=== PATIENT | male | born 1995 | race Caucasian/White ===

== ENCOUNTER 2022-01-21 10:06 | Inpatient (IN) ==
--- NOTE | 2022-01-09 11:45 | Anesthesiology Consultation ---
Date of Service January 09, 2022 Assessment & Plan (1) Encounter for pre-operative examination: - COVID screening: Per drain layer on 01/09/2022: Travel screen negative, no known COVID-19 positive contacts or current COVID-19 related symptoms in past 2 weeks. [facility] at [facility], will need preop COVID testing 2-4 days prior to surgery. Chart Review Chart Review: Acceptable Risk for Surgery and Patient NOT seen in Pre Admission Testing History Surgery Operation Date: 01/21/22 09:20 Proposed Procedures p Left Ulna Hardware Removal - Austin Lobo MD Height/Weight Weight: 78.018 kg Allergies Allergy/AdvReac Type Severity Reaction Status Date / Time sulfamethoxazole Allergy Unknown Verified 01/09/22 10:47 [From Bactrim] trimethoprim [From Bactrim] Allergy Unknown Verified 01/09/22 10:47 Medications Home Medications Medication Instructions Recorded Confirmed Last Taken No Known Home Medications 01/09/22 01/09/22 Unknown Past Medical History Medical History (Updated 01/09/22 @ 11:44 by Theodora Chavez PA-C) Hx of osteoarthritis unknown where-information from [facility] chart Past Family History Family History Other No significant family history Past Surgical History Surgical History (Updated 01/09/22 @ 11:44 by Theodora Chavez PA-C) History of surgery on arm unknown-information from [facility] chart Hx of appendectomy 04/17/18: Grade 1 view, MAC 3, ETT 7.5. Social History Smoking Status: Unknown if ever smoked Smoking cigarettes per day: UNKNOWN
[~2022-01-21 10:06] MED LIST: LACTATED RINGER'S 1,000 ML IV SCH; LR 15ML/HR IV SCH; ROPIVACAINE 0.5% 5 MG/ML 30 ML VIAL ONE; ceFAZolin 2000MG 2,000 MG/15 ML SYR IV SCH
[2022-01-21] MEDS ORDERED: ONDANSETRON INJ 2 MG/ML 2 ML VIAL IV PRN (13:00)
[2022-01-21] MEDS ORDERED: ATROPINE SULFATE 0.1 MG/ML 10ML SYR IV PRN (13:00)
[2022-01-21] MEDS ORDERED: PROMETHAZINE HCL 12.5 MG in SODIUM CHLORIDE 0.9% 50 ML IV PRN (13:00)
[2022-01-21] MEDS ORDERED: FLUMAZENIL 0.1 MG/1 ML 10 ML VIAL IV PRN (13:00)
[2022-01-21] MEDS ORDERED: HYDROmorphone INJ 1 MG/ML SYRINGE IV PRN ×2 (13:00→18:02)
[2022-01-21] MEDS ORDERED: NALOXONE HCL 0.4 MG/1 ML VIAL/CARP IV PRN ×2 (13:00→18:02)
[2022-01-21] MEDS ORDERED: fentaNYL citrate 100 MCG/2 ML VIAL IV PRN (13:00)
[2022-01-21] MEDS ORDERED: ePHEDrine sulfate 50 MG/ML AMP IV PRN (13:00)
[2022-01-21] MEDS ORDERED: fentaNYL citrate 100 MCG/2 ML VIAL ONE ×2 (13:29→16:45)
[2022-01-21] MEDS ORDERED: MIDAZOLAM HCL 1 MG/ML 2ML VIAL ONE ×2 (13:29→14:25)
[2022-01-21] MEDS ORDERED: LIDOCAINE 2% 20 MG/ML 5 ML SYR IV ONE (13:29)
[2022-01-21] MEDS ORDERED: PROPOFOL IV EMULSION 10 MG/ML 20 ML VIAL IV ONE (13:29)
--- NOTE | 2022-01-21 14:41 | History & Physical Bridge Note ---
Date of Service January 21, 2022 History & Physical Bridge Note I have examined the patient, reviewed the History & Physical and in the interval since the performance of the History & Physical I have noted the following changes of clinical significance: no changes noted
[2022-01-21] MEDS ORDERED: GENTAMICIN SULFATE 40 MG/ML 2 ML VIAL ONE (14:55)
[2022-01-21] MEDS ORDERED: VANCOMYCIN HCL 1000MG/20ML VIAL ONE (14:55)
[2022-01-21] MEDS ORDERED: DEXAMETHASONE SOD INJ 4 MG/ML VIAL ONE (15:23)
[2022-01-21] MEDS ORDERED: ONDANSETRON INJ 2 MG/ML 2 ML VIAL ONE (15:23)
[2022-01-21] MEDS ORDERED: ePHEDrine sulfate 50 MG/ML AMP ONE (15:41)
--- NOTE | 2022-01-21 16:57 | Operative Report ---
Post Operative Report Pre & Post Diagnosis Operation Date: 01/21/22 12:50 Pre-Op Diagnosis: Osteomyelitis, left ulna Post-Op Diagnosis: Osteomyelitis, left ulna I identified the patient and participated in the time-out.: Yes Procedure Operation Date: 01/21/22 12:50 Actual Procedures p Left Ulna Hardware Removal(Left) - Austin Lobo MD Surgeon Austin Lobo M.D. Stock Chaser Alma Farfan PA-C Estimated Blood Loss 10 Findings Consistent with Post-Op Diagnosis Specimens wound cultures, soft tissue for culture, culture of affected screw hole Anesthesia Type General Regional Description of Procedure Patient was taken to the operating room, placed under general anesthesia. Time out performed, prepped and draped in routine sterile fashion. He was given 2gm IV Ancef for surgical prophylaxis. I was present during the entire case, please see Dr. Lobo's operative report for further details regarding the procedure. I assisted with positioning, removal of hardware, debridement, irrigation, stimulan beads and closure, splinting and dressings. Patient was awakened and taken to the recovery room in stable condition. I attest to the content of the Intraoperative Record and any orders documented therein. Any exceptions are noted below.
--- NOTE | 2022-01-21 17:08 | Fluoroscopy Report ---
FL forearm LT 2V HISTORY: 26 years-old Male LT UNLAR REMOVE HARDWARE status post hardware removal COMPARISON: CT left forearm 09/10/2021 TECHNIQUE: 4 spot fluoroscopic images of the left forearm were obtained utilizing 4.8 seconds fluoros copy time FINDINGS: Interval removal of the ulnar ORIF hardware. The radial ORIF hardware persists. Expected postoperativ e soft tissue swelling with deep tissue air. No acute fracture or unexpected opaque foreign body. Cor tical thickening compatible with chronic fracture deformities of the radius and ulna. IMPRESSION: Fluoroscopic assistance as above. ACT 112: Negative or not required by law. The above report was generated using voice recognition software. It may contain grammatical, syntax o r spelling errors. Electronically signed by: Nilesh Topete M.D. 01/21/2022 5:07 PM
--- NOTE | 2022-01-21 17:13 | Operative Report ---
Post Operative Report Pre & Post Diagnosis Operation Date: 01/21/22 12:50 Pre-Op Diagnosis: Osteomyelitis, left ulna Post-Op Diagnosis: Osteomyelitis, left ulna I identified the patient and participated in the time-out.: Yes Procedure Pre and postop diagnosis is left ulna osteomyelitis status post ORIF. Operation Date: 01/21/22 12:50 Actual Procedures p Left Ulna Hardware Removal(Left) - Austin Lobo MD Surgeon Austin Lobo MD Printing Gray Cloth Tender Alma Farfan PA-C, No resident or fellow available Estimated Blood Loss 10 Findings Consistent with Post-Op Diagnosis Specimens Cultures x3 #1 superficial #2 of the screw second screw hole from distal #3 he was granulation tissue from the second screw from distal Anesthesia Type General Regional Complications none Disposition Accompanied Patient To Recovery: No Disposition: Recovery Room Indications Hector had a substantial trauma to his left arm was several years ago. This was treated with ORIF among other things of both bones. He had bumped his arm about a year ago and one of the prominent screws broke through the skin. This subsequently got infected and he is suspected to have a focal osteomyelitis of one of the distal screws of the ulnar plate. He is incarcerated. The inflammatory work-up was negative. Recommended removal of the hardware debridement and IV antibiotics. He has a draining sinus. He is agreed to proceed. Description of Procedure Informed consent obtained. Patient identified. He identified the operative site as the left forearm. I marked with my initials and marked out the prior surgical incision that the plate had been inserted through. He was taken to the operating room positioned supine on the operating room table. The anesthetic was administered. A tourniquet was applied to the left upper arm. The limb was prescribed a Betadine and prepped with Betadine in the usual sterile fashion. DVT prophylaxis with early mobility. There was a prominent screw distally over the dorsal ulna with a draining sinus. Swelling localized to that area. Deformity of the arm due to chronic trauma and muscle wasting from neurological injury. Timeout performed. Preop antibiotics given. Positioned supine with the left arm on a hand table. At the conclusion the procedure AP and lateral fluoroscopic images were obtained to document the hardware removal from the ulna. The limb was exsanguinated with the Esmarch although very little pressure was utilized over the wound on the distal ulna. Tourniquet inflated 225 mmHg. The prior surgical incision was utilized to incise the skin. I bluntly dissected down to the level of the ulna and then used electrocautery to expose the ulna. Bone had overgrown proximally and distally and this was removed with a rongeur and osteotome. The screw holes were cleaned of bone and then they were sequentially removed. After removing it off of the overlying bone from the plate proximally distally it was then easily removed. All the screws were good except for the second screw from distal which was grossly loose. There was granulation tissue really only noted around this area and on the superficial part of the distal screw. I then went ahead and curetted the entire plate bed. I rongeured off any bony spicules and bony prominences. I then took a 2.5 mm drill bit and under hand power hand reamed the screws from distal to proximal doing the infected screw hole last. I then took a 3.5 then 4.5 and then 4.8 mm drill bit and underhand power debrided the second screw from distal as it was a grossly dilated. I dissected dorsally to identify that area and remove any granulation tissue I used a curette in the hole and removed any unhealthy bone and tissue present on both sides of the bone. I excised the skin of the sinus tract. At the start of the procedure a culture was taken of the sinus. I took another culture of the screw hole once the screw had been removed and then I sent the debrided granulation tissue from the screw hole as a tissue culture. Routine gram stain aerobic and anaerobic cultures. The remainder of the plate looked normal there was no granulation tissue present elsewhere. There was no fluid collection or purulence noted. After having adequately debrided the second screw from distal all the screw holes were filled as best as possible with 1 more pieces of stimulant beads containing vancomycin and gentamicin. Prior to this the tourniquet was let down. Vein required stick tie pursestring partial repair to stop bleeding and there was a small arterial branch distally which was cauterized. Irrigation was performed with at least 1 L of sterile saline prior to wound closure and prior to putting in the stimulant beads. Hemostasis was well controlled and then the skin was closed with simple interrupted and near far far near sutures using 3-0 nylon. The arm was cleaned and dry sponges a soft sterile dressing was applied Xeroform 4 x 4's ABD soft wrap and then a v olar splint with an Noe. Patient will be admitted to the hospital for IV antibiotics and ID consultation. We will follow-up on the cultures. The plate and the cultures were submitted the specimens. Counts were correct blood loss is estimated to be 20 cc. At the conclusion of the operation there was no one available to speak to. No complications. The type of plate was not clear. It appeared to be some variant of a LCDCP plate with hexhead a 3.5 millimeter screws. I attest to the content of the Intraoperative Record and any orders documented therein. Any exceptions are noted below.
--- NOTE | 2022-01-21 17:23 | Anesthesiology Progress Note ---
Date of Service January 21, 2022 Anesthesia Post Procedure Vital Signs Vital Signs: Temp Pulse Pulse Resp BP Pulse Ox O2 Del Method 01/21/22 17:15 36.2 C L 78 16 127/63 100 Oxymask 01/21/22 17:05 73 16 138/80 100 Oxymask 01/21/22 16:55 63 10 L 125/65 100 Oxymask 01/21/22 16:49 36.0 C L 102 H 12 131/78 100 Oxymask 01/21/22 10:29 36.4 C L 119 H 20 119/76 98 Room Air O2 Flow Rate 01/21/22 17:15 3 01/21/22 17:05 3 01/21/22 16:55 3 01/21/22 16:49 3 01/21/22 10:29 Transfer of Care Handoff Completed per policy Notes Mental Status: alert / awake / arousable Patient Amnestic to Procedure: Yes Nausea / Vomiting: adequately controlled Pain: adequately controlled Airway Patency, RR, SpO2: stable & adequate BP & HR: stable & adequate Hydration State: stable & adequate Anesthetic Complications: no major complications apparent
[2022-01-21] MEDS ORDERED: TAMSULOSIN HCL 0.4 MG CAP PO PRN (18:02)
[2022-01-21] MEDS ORDERED: bisacodyL 10 MG SUPP PR PRN (18:02)
[2022-01-21] MEDS ORDERED: traMADol HCL 50 MG TABLET PO PRN (18:02)
[2022-01-21] MEDS ORDERED: HYDROmorphone INJ 0.5 MG/0.5 ML SYR IV PRN (18:02)
[2022-01-21] MEDS ORDERED: METOCLOPRAMIDE HCL INJ 5 MG/ML 2 ML VIAL IV PRN (18:02)
[2022-01-21] MEDS ORDERED: VANCOMYCIN CONSULT ACTIVE PRN (18:02)
[2022-01-21] MEDS ORDERED: MAGNESIUM HYDROXIDE SUSP 30 ML UDC PO PRN (18:02)
[2022-01-21] MEDS ORDERED: VANCOMYCIN HCL 1,750 MG in SODIUM CHLORIDE 0.9% 500 ML IV STA (19:50)
[2022-01-21] MEDS: SODIUM CHLORIDE 0.9% 1000ML 1,000 ML IV SCH (20:26)
[2022-01-21] MEDS: KETOROLAC 30 MG/ML VIAL IV SCH (20:27)
[2022-01-21] MEDS: CEFEPIME 2,000 MG in SYRINGE 0 ML IV SCH (20:27)
[2022-01-21 20:28] LABS: Creatinine Clr Calc Pharmacy 133.2 ml/min; Est GFR (African American) 138.1 ml/min; Est GFR (Non-African American) 119.1 ml/min
[2022-01-21] MEDS: ACETAMINOPHEN 500 MG TAB PO SCH (20:32)
[2022-01-21] MEDS: SENNA 8.6 MG TAB PO SCH (20:33)
[2022-01-21] MEDS: DOCUSATE SODIUM 100 MG CAP PO SCH (20:34)
[2022-01-21] MEDS: ONDANSETRON INJ 2 MG/ML 2 ML VIAL IV PRN (21:46)
[2022-01-22] MEDS: KETOROLAC 30 MG/ML VIAL IV SCH ×4 (00:20→17:44)
[2022-01-22] MEDS: CEFEPIME 2,000 MG in SYRINGE 0 ML IV SCH ×3 (02:23→17:44)
[2022-01-22] MEDS ORDERED: VANCOMYCIN HCL 1,000 MG in SODIUM CHLORIDE 0.9% 250 ML IV SCH (02:45)
[2022-01-22] MEDS: ONDANSETRON INJ 2 MG/ML 2 ML VIAL IV PRN (03:43)
[2022-01-22] MEDS: oxyCODONE HCL IR 5 MG TAB (IMMEDIATE RELEASE) PO PRN ×2 (03:43→06:54)
[2022-01-22] MEDS: ACETAMINOPHEN 500 MG TAB PO SCH ×3 (05:51→21:46)
[2022-01-22] MEDS: diphenhydrAMINE 50 MG/ML VIAL IV PRN ×2 (05:58→23:07)
[2022-01-22 06:33] LABS: Hematocrit (blood only) 36.9 % (40.1-51.0); Hemoglobin 12.8 g/dl (14.0-18.0); Mean Corpuscular Hemoglobin 29.4 pg (25.0-34.0); Mean Corpuscular Hgb Conc 34.7 g/dL (32.0-36.0); Mean Corpuscular Volume 84.8 fL (80.0-100.0); Mean Platelet Volume 9.5 fL (9.4-12.4); Platelet Count 241 K/uL (130-400); RDW Coefficient of Variation 12.1 % (11.5-14.5); RDW Standard Deviation 37.6 fL (36.4-46.3); Red Blood Count 4.35 M/uL (4.63-6.08); White Blood Count 9.49 K/ul (4.8-10.8)
[2022-01-22] MEDS: SODIUM CHLORIDE 0.9% 1000ML 1,000 ML IV SCH (07:10)
[2022-01-22 07:39] LABS: BUN Creatinine Ratio 15.5 (10-20); Calcium 8.8 mg/dl (8.5-10.1); Est GFR (African American) 140.1 ml/min; Est GFR (Non-African American) 120.8 ml/min
[2022-01-22] MEDS: MULTIVITAMIN TAB PO SCH (08:22)
[2022-01-22] MEDS: DOCUSATE SODIUM 100 MG CAP PO SCH ×2 (08:22→21:46)
--- NOTE | 2022-01-22 09:49 | Orthopedic Progress Note ---
Date of Service January 22, 2022 Assessment & Plan (1) Osteomyelitis of left ulna: Present on Admission?: Yes Plan Cultures are pending. Continue broad-spectrum antibiotics. There is a small risk for fracture. Protect with a splint and eventually a cast. Follow-up on cultures. Await ID recommendations. Check blood cultures. He will likely need long-term IV antibiotics. Admission and Anticipated Discharge Date Admission Date: January 21, 2022 Subjective Doing well. Pain is well controlled. Block is still wearing off. Results of surgery and findings as well as x-rays are discussed and reviewed. Physical Exam Physical Exam: Dressing clean and dry. He can wiggle his fingers but has deficits of ulnar and radial nerve. Cannot extend the thumb has difficulty extending fingers as well as abducting. These are chronic findings. Palmar abduction of the thumb appears to be intact as well as finger flexion capillary refill. There is still some tingling and numbness present. Swelling is absent Results & Data ([facility]) Vital Signs (Past 12 Hours) Vital Signs Temp Pulse Resp BP Pulse Ox O2 Del Method 01/22/22 08:24 36.7 C 68 16 96/59 L 100 Room Air 01/22/22 02:55 36.5 C 74 14 144/83 H 97 Room Air 01/21/22 23:00 Room Air
[2022-01-22] MEDS: VANCOMYCIN HCL 1,500 MG in SODIUM CHLORIDE 0.9% 500 ML IV SCH ×2 (11:55→23:07)
--- NOTE | 2022-01-22 12:05 | Pharmacy Report ---
Pharmacy PK ABX Note - Date of Service January 22, 2022 - Assessment and Plan Assessment 26 year old M receiving Vancomycin for treatment of osteomyelitis (left arm). Additionally receiving cefepime 2 grams q8h. Currently awaiting infectious disease recommendations. Day # 2 of antimicrobial therapy. Plan Vancomycin * Loading dose: 1,750 mg IV x 1 on 01/21/22 at 20:34 * Maintenance dose: 1,500 mg IV every 12 hours starting 01/22/22 at 11:15 * Regimen is predicted to achieve target AUC/RONALDO of 400-600 mg/L.hr * Random level ordered for 01/23/22 with AM labs. Pharmacy will continue to follow and will adjust dose/frequency as necessary. Thank you. Pharmacy has transitioned to AUC monitoring for vancomycin. AUC/RONALDO is the preferred PK/PD target and is associated with decreased risk of nephrotoxicity compared to traditional trough targets.
[2022-01-22] MEDS: SENNA 8.6 MG TAB PO SCH (21:46)
[2022-01-23] MEDS: KETOROLAC 30 MG/ML VIAL IV SCH ×3 (01:33→13:42)
[2022-01-23] MEDS: CEFEPIME 2,000 MG in SYRINGE 0 ML IV SCH ×2 (01:34→08:37)
[2022-01-23] MEDS: ACETAMINOPHEN 500 MG TAB PO SCH ×3 (06:11→22:10)
[2022-01-23] MEDS: MULTIVITAMIN TAB PO SCH (08:37)
[2022-01-23] MEDS: DOCUSATE SODIUM 100 MG CAP PO SCH ×2 (08:37→20:22)
--- NOTE | 2022-01-23 08:54 | Pharmacy Report ---
Pharmacy PK ABX Note - Date of Service January 23, 2022 - Assessment and Plan Assessment 26 year old M receiving Vancomycin for treatment of osteomyelitis (left arm). Additionally receiving cefepime 2 grams q8h. Currently awaiting infectious disease recommendations. One arm culture is growing MSSA. Day # 3 of antimicrobial therapy. Plan Vancomycin * Trough this morning associated with an AUC of 481 mg/L.hr but only 83% probability. * Increase dose to vancomycin 1250 mg IV q8 hours which is associated with AUC of 600 mg/L.hr with 98% probability. Risk of nephrotoxicity is 15%. * Regimen is predicted to achieve target AUC/RONALDO of 400-600 mg/L.hr * Random level ordered for 01/23/22 with AM labs. Pharmacy will continue to follow and will adjust dose/frequency as necessary. Thank you. Pharmacy has transitioned to AUC monitoring for vancomycin. AUC/RONALDO is the preferred PK/PD target and is associated with decreased risk of nephrotoxicity compared to traditional trough targets.
--- NOTE | 2022-01-23 09:40 | Orthopedic Progress Note ---
Date of Service January 23, 2022 Assessment & Plan (1) Osteomyelitis of left ulna: Plan: Patient was educated regarding today's findings. Xeroform was left in place over the wound. New gauze and Kerlix were applied to the forearm. Splint was replaced and covered with Noe wraps. Continue previous restrictions. Patient remains afebrile. Continues vancomycin. He will be seen by Dr. Lobo later today. Awaiting further input from infectious disease. Patient's blood cultures remain negative at this time. Admission and Anticipated Discharge Date Admission Date: January 21, 2022 Subjective Patient was seen in his room this morning. He currently has no complaints. Denies any significant pain in his. No numbness or tingling. He is waiting to see what the neck steps are. Patient denies any fevers or chills. No sweats overnight. Review of Systems Review of Systems: Unchanged from yesterday. Physical Exam Physical Exam: General: Well-developed, well-nourished, young male, in no acute distress. Laying in bed. Alert and oriented. Conversive. Skin: Warm dry with good turgor. He has a postsurgical splint present on his left forearm. Upon removal, there is some moderate dried drainage on the inner dressings. No active bleeding from his wound at this time. Musculoskeletal: Patient has intact motor function of his fingers and thumb. Thumb circumduction and opposition are intact. FDS and FDP functions are intact for each of the digits. He has intact flexion extension of the elbow. Supination pronation was not attempted. Neurologic: Gross sensation is intact across each of the digits of the left hand by soft touch. Peripheral pulses are 2+. Capillary refill is equal for each of the fingers. Results & Data ([facility]) Vital Signs (Past 12 Hours) Vital Signs Temp Pulse Pulse Resp BP Pulse Ox O2 Del Method 01/23/22 08:46 36.7 C 66 12 115/65 98 Room Air 01/22/22 22:50 36.8 C 85 18 109/73 97
[2022-01-23] MEDS ORDERED: VANCOMYCIN HCL 1,250 MG in SODIUM CHLORIDE 0.9% 250 ML IV SCH (10:00)
[2022-01-23] MEDS: DAPTOmycin 500 MG in SYRINGE 0 ML IV SCH (13:42)
--- NOTE | 2022-01-23 14:22 | Progress Notes ---
DATE OF SERVICE: 01/23/2022. No problems are reported. He has had his dressing changed by Jose. His sensation has returned. He has deficits of the ulnar and radial nerve. He has limited finger extension and abduction strength. Sensation was intact and he has intact palmar abduction of the thumb. Dressing was clean, dry and intact. Cultures have grown out methicillin-sensitive staph. The vancomycin and cefepime have been stopped and he has been switched to daptomycin. PICC consent has been obtained and we will await a c onsultation from Infectious Diseases. The patient is aware. Continue IV daptomycin. I will be out starting tomorrow. Alma Farfan, Dr. Curry and Dr. Ibarra will cover Thursday. Dr. Dahl will be here through the weekend. Job ID: [id number]
[2022-01-23] MEDS: SENNA 8.6 MG TAB PO SCH (20:22)
[2022-01-23] MEDS: diphenhydrAMINE 50 MG/ML VIAL IV PRN (22:29)
[2022-01-24] MEDS: ACETAMINOPHEN 500 MG TAB PO SCH ×3 (06:21→21:55)
[2022-01-24] MEDS: DOCUSATE SODIUM 100 MG CAP PO SCH ×2 (08:24→20:34)
[2022-01-24] MEDS: MULTIVITAMIN TAB PO SCH (08:24)
[2022-01-24 10:01] LABS: Creatinine Clr Calc Pharmacy 144.9 ml/min; Est GFR (African American) 142.9 ml/min; Est GFR (Non-African American) 123.3 ml/min
--- NOTE | 2022-01-24 10:35 | Orthopedic Progress Note ---
Date of Service January 24, 2022 Assessment & Plan (1) Osteomyelitis of left ulna: Plan: Patient's forearm was redressed using gauze and cast padding. He was placed back in his splint. He is still awaiting consult from infectious disease. Continue his IV daptomycin. We will continue to follow through the weekend. Continue with ice and elevation as needed for any minor discomfort. He has been using Tylenol for pain control. Last dose was around 6 AM. He has not had any narcotic for several days. Admission and Anticipated Discharge Date Admission Date: January 21, 2022 Subjective Patient is seen in his room this morning. He has no complaints. Denies any forearm pain. No numbness or tingling. No real change from yesterday. He is still awaiting input from infectious disease regarding antibiotic selection. Physical Exam Physical Exam: General: Well-developed, well-nourished, young white male, in no acute distress. Sitting in bed. Watching TV. Alert and oriented. Conversive. Skin: Warm and dry with good turgor. Postsurgical splint is still in place on the left arm. Upon removal, the rest of his dressings were taken down. They are dry. His wound looks good. There is no active bleeding. Sutures are intact. Wound edges are well approximated. No erythema. No warmth. No edema. Expected postoperative ecchymosis. There is no drainage. Musculoskeletal: Patient has intact motor function of the elbow for flexion and extension. He is able to wiggle his fingers. He has no significant pain with palpation over the forearm. Neurologic: Gross sensation is intact across each of the fingers on the left hand by soft touch. Peripheral pulses are 2+. Results & Data ([facility]) Vital Signs (Past 12 Hours) Vital Signs Temp Pulse BP Pulse Ox O2 Del Method 01/24/22 08:28 36.4 C L 75 125/73 99 Room Air
[2022-01-24] MEDS: DAPTOmycin 500 MG in SYRINGE 0 ML IV SCH (12:23)
[2022-01-24] MEDS: ceFAZolin 2000MG 2,000 MG/15 ML SYR IV SCH ×2 (15:21→21:54)
[2022-01-24] MEDS: SENNA 8.6 MG TAB PO SCH (20:34)
[2022-01-24] MEDS: diphenhydrAMINE 50 MG/ML VIAL IV PRN (21:54)
[2022-01-25] MEDS: ACETAMINOPHEN 500 MG TAB PO SCH ×3 (05:49→21:41)
[2022-01-25] MEDS: ceFAZolin 2000MG 2,000 MG/15 ML SYR IV SCH ×3 (05:49→21:42)
[2022-01-25] MEDS: DOCUSATE SODIUM 100 MG CAP PO SCH ×2 (07:09→21:07)
[2022-01-25] MEDS: MULTIVITAMIN TAB PO SCH (07:09)
[2022-01-25 08:31] LABS: Creatinine Clr Calc Pharmacy 130.2 ml/min; Est GFR (African American) 136.8 ml/min
--- NOTE | 2022-01-25 09:48 | Orthopedic Progress Note ---
Date of Service January 25, 2022 Assessment & Plan (1) Osteomyelitis of left ulna: -Stable on POD 4 -ID consult noted, continue IV cefazolin 2g q 8 h -Needs PICC placement; tentative for today -Tylenol, ice, elevation prn for pain control Will follow through weekend. Discussed w/ Dr. Dahl. Subjective Feels pretty good today. No worsening pain or numbness in left hand. Has some questions about PICC line but otherwise doing fine. . Review of Systems All systems reviewed & are unremarkable except as noted in HPI & below. Physical Exam General: Pleasant 26 y/o/m resting in bed comfortable in NAD. LUE: Splint/dressing left in place for examination. Dressing C/D/I. Mild flexion contractures noted to 4th and 5th digits. Can form closed fist. Distally N/V/I. Results & Data Results & Data Laboratory Results None recent . Diagnostic Findings None recent . PG Care Time/CCT Total # of Minutes Spent Total Time Spent with Patient: Total time spent is greater than 50% in coordination of care (as documented) at patient's floor/unit and/or counseling patient: Coding Level of Care Code 17675 Post Operative Follow-Up Diagnoses Osteomyelitis of left ulna M86.9
[2022-01-25] MEDS: SENNA 8.6 MG TAB PO SCH (21:07)
[2022-01-25] MEDS: diphenhydrAMINE 50 MG/ML VIAL IV PRN (21:46)
[2022-01-26] MEDS: ceFAZolin 2000MG 2,000 MG/15 ML SYR IV SCH ×3 (05:55→21:59)
[2022-01-26] MEDS: ACETAMINOPHEN 500 MG TAB PO SCH ×3 (05:55→21:59)
[2022-01-26] MEDS: MULTIVITAMIN TAB PO SCH (07:50)
[2022-01-26] MEDS: DOCUSATE SODIUM 100 MG CAP PO SCH ×2 (07:50→19:55)
[2022-01-26 08:01] LABS: Creatinine Clr Calc Pharmacy 144.9 ml/min; Est GFR (African American) 142.9 ml/min; Est GFR (Non-African American) 123.3 ml/min
--- NOTE | 2022-01-26 10:36 | Orthopedic Progress Note ---
Date of Service January 26, 2022 Assessment & Plan (1) Osteomyelitis of left ulna: -Stable on POD 5 -ID consult noted, continue IV cefazolin 2g q 8 h -PICC in place -Tylenol, ice, elevation prn for pain control -Anticipate d/c tomorrow. Subjective Feels good today. No issues. PICC placed yesterday w/o issue. Review of Systems All systems reviewed & are unremarkable except as noted in HPI & below. Physical Exam General: Pleasant 26 y/o/m resting in bed comfortable in NAD. LUE: Splint/dressing left in place for examination. Dressing C/D/I. Mild flexion contractures noted to 4th and 5th digits. Can form closed fist. Distally N/V/I. . Results & Data Results & Data Laboratory Results None recent. Diagnostic Findings None recent . PG Care Time/CCT Total # of Minutes Spent Total Time Spent with Patient: Total time spent is greater than 50% in coordination of care (as documented) at patient's floor/unit and/or counseling patient: Coding Level of Care Code 62783 Post Operative Follow-Up Diagnoses Osteomyelitis of left ulna M86.9
[2022-01-26] MEDS: SENNA 8.6 MG TAB PO SCH (19:56)
[2022-01-27] MEDS: ceFAZolin 2000MG 2,000 MG/15 ML SYR IV SCH ×3 (05:47→22:04)
[2022-01-27] MEDS: ACETAMINOPHEN 500 MG TAB PO SCH ×3 (05:47→22:10)
[2022-01-27] MEDS: MULTIVITAMIN TAB PO SCH (09:17)
[2022-01-27 09:18] LABS: Basophils # (auto) 0.02 K/uL (0-0.2); Basophils % (auto) 0.3 %; Eosinophils # (auto) 0.09 K/uL (0-0.50); Eosinophils % (auto) 1.5 %; Hematocrit (blood only) 40.9 % (40.1-51.0); Hemoglobin 14.5 g/dl (14.0-18.0); Immature Granulocytes # (auto) 0.02 K/uL (0.00-0.02); Immature Granulocytes % (auto) 0.3 %; Lymphocytes # (auto) 1.09 K/uL (1.2-3.4); Lymphocytes % (auto) 17.9 %; Mean Corpuscular Hemoglobin 29.7 pg (25.0-34.0); Mean Corpuscular Hgb Conc 35.5 g/dL (32.0-36.0); Mean Corpuscular Volume 83.6 fL (80.0-100.0); Mean Platelet Volume 9.3 fL (9.4-12.4); Monocytes # (auto) 0.28 K/uL (0.24-0.82); Monocytes % (auto) 4.6 %; Neutrophils # (auto) 4.58 K/uL (1.4-6.5); Neutrophils % (auto) 75.4 %; Platelet Count 244 K/uL (130-400); RDW Coefficient of Variation 12.1 % (11.5-14.5); RDW Standard Deviation 36.9 fL (36.4-46.3); Red Blood Count 4.89 M/uL (4.63-6.08); White Blood Count 6.08 K/ul (4.8-10.8)
[2022-01-27] MEDS: DOCUSATE SODIUM 100 MG CAP PO SCH ×2 (09:18→22:03)
[2022-01-27 09:40] LABS: BUN Creatinine Ratio 15.4 (10-20); Calcium 9.6 mg/dl (8.5-10.1); Creatinine Clr Calc Pharmacy 148.6 ml/min; Est GFR (African American) 144.4 ml/min; Est GFR (Non-African American) 124.6 ml/min; Potassium 3.9 mmol/L (3.5-5.1)
--- NOTE | 2022-01-27 10:35 | Progress Notes ---
DATE OF SERVICE: 01/27/2022 No problems are reported. He is afebrile. His vital signs are stable. White count normal today as are hemoglobin and hematocrit. His PRP is within normal limits except for his glucose. He has a bynum sed reddish wheal around the armpit area and on the back of the shoulder. Also, one distally on the arm, which he thinks might be related to tape. We will monitor. There is nothing around the PICC li ne site. ID consult is noted. He will be on IV Ancef for approximately 5 weeks. Currently, the med ication has not been ordered and he will need to stay here until tomorrow. On exam, the dressing is changed. The draining sinus is healing over well. There is no purulence or significant swelling. The surgical incision is benign. There is no fluid or drainage. He has inju zenaida to the radial and ulnar nerves. He has intact median nerve function with intact sensation and c apillary refill less than 2 seconds. The plan is to continue IV antibiotics. He was placed back into his splint. When the outpatient IV antibiotics are ready, he will be discharged home and will follow up with me in one week for wound ch janice, suture removal, and application of cast. Job ID: [id number]
[2022-01-27] MEDS: SENNA 8.6 MG TAB PO SCH (22:03)
[2022-01-28] MEDS: ACETAMINOPHEN 500 MG TAB PO SCH (06:02)
[2022-01-28] MEDS: ceFAZolin 2000MG 2,000 MG/15 ML SYR IV SCH (06:04)
--- NOTE | 2022-01-28 08:56 | Orthopedic Progress Note ---
Date of Service January 28, 2022 Assessment & Plan (1) Osteomyelitis of left ulna: Plan: Pt will be d/c to [facility], [place] today I spoke with Gloria at [facility] this am at 8:45 and she confirmed that they received the Ancef last night will need provider to provider and nurse to nurse update prior to d/c. Provider was not available at time of call, Dr. Lobo aware and will discuss w/ physician at [facility], contact [facility] [phone] ext [phone] continue with PICC and 2g of Ancef every 8 hours x 5 weeks per Infectious disease Labs to be done weekly CBC, BMP every other week CRP He will remain in splint, advised on keeping area clean and dry NWB on LUE Able to do ROM of digits and elbow as tolerated daily Blood Cultures are negative He will keep f/u as scheduled with Infectious disease. Dr. Potter 03/07/22 @3pm and Dr. Lobo 02/07/22@10am for suture removal and application of a cast. Discussed with Dr. Lobo and he is in agreement w/ D/C today. Admission and Anticipated Discharge Date Admission Date: January 21, 2022 Subjective Patient is a 26 y.o right hand dominant male who was seen bedside this am at approximately 8:00am. Two correctional officers are present. He is alert and oriented x3. He denies any pain, paresthesia, or discoloration of the LUE. He denies any redness or pain around the picc line in the RUE. He denies any fever, chills, night sweats, CP or SOB. Review of Systems Review of Systems: Please refer to HPI Physical Exam Physical Exam: General: Alert and Oriented x3 in good spirits. Integumentary and Musculoskeletal: dressing and splint are in place. this was removed. Incision is well approximated, negative for drainage, erythema. digits are normal in color and temperature. Sensation is intact. Able to move digits and thumb. Elbow ROM for flexion and extension without pain. Radial pulse 2+ Application of dressing and splint. Post splinting Cap refill <2 seconds Results & Data ([facility]) Vital Signs (Past 12 Hours) Vital Signs Temp Pulse Pulse Resp BP Pulse Ox O2 Del Method 01/28/22 08:21 36.9 C 81 16 105/67 98 Room Air 01/27/22 22:43 36.7 C 84 16 116/72 96 Room Air Laboratory Results Microbiology 01/21/22 18:13 Aerobic Blood Culture - Final Blood No growth in Aerobic bottle after 5 days. Anaerobic Blood Culture - Final No growth in Anaerobic bottle after 5 days. 01/21/22 18:22 Aerobic Blood Culture - Final Blood No growth in Aerobic bottle after 5 days. Anaerobic Blood Culture - Final No growth in Anaerobic bottle after 5 days.
[2022-01-28] MEDS: MULTIVITAMIN TAB PO SCH (09:14)
[2022-01-28] MEDS: DOCUSATE SODIUM 100 MG CAP PO SCH (09:14)
--- NOTE | 2022-01-28 11:36 | Discharge Summary ---
Date of Service January 28, 2022 Discharge Data Consultations 01/21/22 18:02 Consult Infectious Diseases Routine Procedures Performed Operation Date: 01/21/22 12:50 Actual Procedures p Left Ulna Hardware Removal(Left) - Austin Lobo MD Hospital Course (1) Osteomyelitis of left ulna: Patient underwent hardware removal of his left ulna by Dr. Lobo on January 21, 2022 at [facility]. Surgery was performed with general anesthesia. He tolerated the surgery well without any intraoperative or postoperative complications. His hardware was removed, intraoperative fluoroscopic pictures were obtained to confirm. He was placed on IV antibiotics, cefepime and vancomycin until culture results were available. Blood cultures were obtained and were negative. Intra-operative cultures were positive for Methicillin sensitive Staph aureus. His IV vancomycin was discontinued and the cefepime was continued until the ID consult was performed. An infectious disease consult was obtained and performed on January 23, 2022 but not available to us until January 24, 2022. On postoperative day 2 his d ressings were changed of his left upper extremity. The incision was clean dry and intact new dressings were applied. This was repeated on postoperative day 3. He was placed in a splint and advised to keep that on at all times and keep it clean and dry. Encouraged elevation and ice as needed for pain and swelling. He was given Tylenol and oxycodone as needed for pain. Advised nonweightbearing through his left upper extremity. His activity level was allowed out of bed as tolerated. He was given a regular diet. On January 24 it was determined that he would require a PICC line for 6 weeks after his surgery. The PICC consent was obtained on January 23, 2022. The PICC was placed on January 24. ID recommendations were for IV Ancef 2000 mg every 8 hours for 6 weeks postoperatively, discontinued the IV cefepime. This was communicated to [facility]. On Thursday they did not have the medication and needed to order it so we were informed that he needed to stay through Thursday until they could get the medication at the group home. On Thursday at the time of discharge we communicated with the group home that he was ready for discharge and they informed us that they did not order the medication on Thursday and would not have it until Thursday. A direct physician to physician contact was made on Thursday. He was discharged to [facility] in stable condition January 28, 2022. He had discharge instructions which consisted of ice, elevation, keeping the splint clean and dry at all times. Keep it on at all times. Nonweightbearing left upper extremity. He needs to be getting CBC, BMP weekly and CRP every other week. They can copy these results to Dr. Lobo and Dr. Potter with infectious disease. He does have follow-ups with both of those physicians as scheduled. They know to call with any problems, questions or concerns. Discharge instructions as below.
== END 2022-01-28 12:27 | DRG 496 ==
LOC: ASU 10:06 → 3W 16:50
DX: B95.62 Methicillin resistant Staphylococcus aureus infection as the cause of diseases classified elsewhere; T84.84XA Pain due to internal orthopedic prosthetic devices, implants and grafts, initial encounter; Y92.009 Unspecified place in unspecified non-institutional (private) residence as the place of occurrence of the external cause; Y79.2 Prosthetic and other implants, materials and accessory orthopedic devices associated with adverse incidents; M86.9 Osteomyelitis, unspecified; Z88.2 Allergy status to sulfonamides